=== PATIENT | female | born 1940 | race Two or more races ===

== ENCOUNTER 2017-08-08 10:36 | Outpatient (CLI) | payer OTHER | END 2017-08-08 17:00 | disposition home or self-care (01) | LOC: MAMO-SONO 10:36 | DX: Z12.31 Encounter for screening mammogram for malignant neoplasm of breast (principal); Z87.898 Personal history of other specified conditions; N61.0 Mastitis without abscess ==

== ENCOUNTER 2018-06-20 13:37 | Outpatient (CLI) | payer OTHER | END 2018-06-20 15:00 | disposition home or self-care (01) | LOC: NUCLEAR 13:37 | DX: M81.0 Age-related osteoporosis without current pathological fracture (principal) ==

== ENCOUNTER 2018-09-05 14:38 | Outpatient (CLI) | payer OTHER | END 2018-09-05 14:42 | disposition home or self-care (01) | LOC: MAMO-SONO 14:38 | DX: Z12.31 Encounter for screening mammogram for malignant neoplasm of breast (principal); Z87.898 Personal history of other specified conditions; N60.11 Diffuse cystic mastopathy of right breast; N60.12 Diffuse cystic mastopathy of left breast; Z01.818 Encounter for other preprocedural examination; H25.12 Age-related nuclear cataract, left eye ==

== ENCOUNTER 2018-09-26 12:42 | Outpatient (CLI) | payer OTHER | END 2018-09-26 12:47 | disposition home or self-care (01) | LOC: MAMO-SONO 12:42 | DX: R92.8 Other abnormal and inconclusive findings on diagnostic imaging of breast (principal) ==

== ENCOUNTER → 2022-06-02 | Outpatient (CLI) | payer OTHER | END | disposition home or self-care (01) | LOC: RAD 11:43 | PROVIDERS: ATTEND Physical Medicine & Rehabilitation | DX: M25.512 Pain in left shoulder (principal) | CPT/HCPCS: 73221 ==

== ENCOUNTER 2022-07-01 12:44 | Outpatient (CLI) | payer OTHER | END 2022-07-01 12:46 | disposition home or self-care (01) | LOC: NUCLEAR 12:44 | PROVIDERS: ATTEND Physical Medicine & Rehabilitation | DX: M81.0 Age-related osteoporosis without current pathological fracture (principal) ==

== ENCOUNTER 2023-07-12 08:22 | Emergency (ER) | payer OTHER ==
[~2023-07-12] VITALS: Ht 162.6 cm; Wt 65.8 kg
[2023-07-12] MEDS ORDERED: ALDACTONE25 MG PO (08:50)
[2023-07-12] MEDS ORDERED: PLAVIX75 MG PO (08:50)
[2023-07-12] MEDS ORDERED: ZYRTEC10 M3 PO (08:50)
[2023-07-12] MEDS ORDERED: PREVACID15 M1 PO (08:50)
[2023-07-12] MEDS ORDERED: NORVASC5 MG PO (08:50)
[2023-07-12] MEDS ORDERED: DEKAS ESSENTIAL PO (08:51)
[2023-07-12] MEDS ORDERED: DEXAMETHASONE SODIUM PHOSPHATE 4 MG/ML VIAL IM ONE (09:45)
[2023-07-12] MEDS ORDERED: GUAIFENESIN/DEXTROMETHORPHAN 100 MG/5 ML ML PO ONE (09:45)
[2023-07-12 10:06] LABS: HEMATOCRIT 38.8 % (36.0-45.00); HEMOGLOBIN 13.4 g/dL (12.0-15.00); MEAN CELL VOLUME 90.7 fL (80.00-100.00); MEAN CORPUSCULAR HEMOGLOBIN 31.3 pg (27.00-32.0); MEAN CORPUSCULAR HGB CONC 34.5 g/dl (32.0-36.0); PLATELET COUNT 212 K/uL (150-450); RED BLOOD COUNT 4.28 M/uL (4.00-6.00); RED CELL DISTRIBUTION WIDTH 13.3 % (11.5-14.5)
[2023-07-12] MEDS ORDERED: MOLNUPIRAVIR (200 MG PO (12:41)
[2023-07-12] MEDS ORDERED: FLONASE ALLERG9.9 ML NASAL (12:45)
[2023-07-12] MEDS ORDERED: MUCINEX DM ER1 EAC1 PO (12:45)
[2023-07-12] MEDS ORDERED: MONTELUKAST SOD10 MG PO (12:45)
== END 2023-07-12 12:50 | disposition home or self-care (01) ==
LOC: ER
PROVIDERS: General Practice
DX: U07.1 COVID-19 (principal); I10 Essential (primary) hypertension; Z88.8 Allergy status to other drugs, medicaments and biological substances; Z91.041 Radiographic dye allergy status
CPT/HCPCS: 36415; 96372; 99284; J1100

== ENCOUNTER 2023-07-27 14:53 | Outpatient (CLI) | payer OTHER ==
[~2023-07-27 14:53] MED LIST: ALDACTONE25 MG PO; DEKAS ESSENTIAL PO; FLONASE ALLERG9.9 ML NASAL; MOLNUPIRAVIR (200 MG PO; MONTELUKAST SOD10 MG PO; MUCINEX DM ER1 EAC1 PO; NORVASC5 MG PO; PLAVIX75 MG PO; PREVACID15 M1 PO; ZYRTEC10 M3 PO
== END 2023-07-27 14:58 | disposition home or self-care (01) ==
LOC: RAD 14:53
PROVIDERS: ATTEND Internal Medicine
DX: R05.9 Cough, unspecified (principal)

== ENCOUNTER → 2025-04-25 | Outpatient (CLI) | payer OTHER | END | disposition home or self-care (01) | LOC: RAD 14:08 | PROVIDERS: ATTEND Obstetrics & Gynecology Obstetrics | DX: M99.01 Segmental and somatic dysfunction of cervical region (principal); M99.02 Segmental and somatic dysfunction of thoracic region; M99.03 Segmental and somatic dysfunction of lumbar region; M99.04 Segmental and somatic dysfunction of sacral region; M99.05 Segmental and somatic dysfunction of pelvic region ==